=== PATIENT | female | born 1960 | race Caucasian/White ===

== ENCOUNTER 2021-05-12 10:08 | Emergency (ER) | payer MEDICARE, OTHER ==
[~2021-05-12] VITALS: Ht 162.6 cm; Wt 74.8 kg
[~2021-05-12 10:08] MED LIST: ALAVERT10 M1 PO; ALAVERT10 MG PO; AMLODIPINE BESY10 MG PO; ANASTROZOLE1 MG PO; CHORTHALIDONE; HYDROXYZINE HCL50 MG PO; LEXAPRO20 MG PO; NEURONTIN 400400 M1 PO; NORCO 5-325 TA1 EACH PO; OMEPRAZOLE 20 M20 M1 PO; PENICILLIN VK500 M1 PO; PERCOCET 5-3251 EACH PO; REVIA 50 MG TAB50 M1 PO; SPIRONOLACTONE25 M3 PO; TOBRAMYCIN SULFA5 M1 OPHTHALMIC; TRAZODONE HCL50 MG PO
[2021-05-12 13:37] VITALS: BP 112/58
== END 2021-05-12 13:37 | disposition home or self-care (01) ==
LOC: ER 10:08
DX: S80.11XA Contusion of right lower leg, initial encounter (principal); I10 Essential (primary) hypertension; Z85.3 Personal history of malignant neoplasm of breast; Z90.710 Acquired absence of both cervix and uterus; Z79.899 Other long term (current) drug therapy; Z79.891 Long term (current) use of opiate analgesic; V49.9XXA Car occupant (driver) (passenger) injured in unspecified traffic accident, initial encounter; Y93.89 Activity, other specified; Y92.89 Other specified places as the place of occurrence of the external cause; Y99.8 Other external cause status